=== PATIENT | female | born 1985 | race Caucasian/White ===

== ENCOUNTER 2017-08-18 02:16 | Emergency (ER) | payer MEDICAID, OTHER ==
[2017-08-18] MEDS: LEVALBUTEROL (NEB) 1.25 MG/0.5 ML AMP INH (03:18)
[2017-08-18] MEDS: IPRATROPIUM (NEB) 0.5 MG/2.5 ML AMP HHN (03:18)
[2017-08-18] MEDS: ACETAMINOPHEN 325 MG TAB PO (03:32)
== END 2017-08-18 04:42 | disposition home or self-care (01) ==
LOC: FTE 02:16
DX: O99.511 Diseases of the respiratory system complicating pregnancy, first trimester (principal); J45.31 Mild persistent asthma with (acute) exacerbation; J01.90 Acute sinusitis, unspecified; B96.89 Other specified bacterial agents as the cause of diseases classified elsewhere; Z3A.11 11 weeks gestation of pregnancy
CPT/HCPCS: 94664; 99284-25